=== PATIENT | female | born 1930 | race Caucasian/White ===

== ENCOUNTER 2017-02-26 07:01 | Day surgery (SDC) | payer OTHER, MEDICAID ==
[~2017-02-26] VITALS: Ht 142.2 cm; Wt 58.1 kg
[~2017-02-26 07:01] MED LIST: CEFAZOLIN SOD 1 GM in D5W 50 ML IV ONE
[2017-02-26] MEDS ORDERED: POLYMYXIN 500,000/BACIT.10,000 UNITS in NS IRR 1 L IR ONE (09:51)
[2017-02-26] MEDS ORDERED: LR 1,000 ML IV SCH (10:29)
[2017-02-26] MEDS ORDERED: MORPHINE 2 MG/ML INJ. SYRINGE IVP PRN ×3 (10:30)
[2017-02-26] MEDS ORDERED: METOCLOPRAMIDE HCL 10 MG/2 ML VIAL IVP PRN (10:30)
[2017-02-26] MEDS ORDERED: D5/0.45 NS 1,000 ML IV SCH (10:41)
[2017-02-26] MEDS ORDERED: HYDROcodone/ACETAMIN 5-325 MG TAB (NORCO/ VICODIN) PO PRN ×2 (10:45)
[2017-02-26] MEDS ORDERED: HYDROmorphone 1 MG INJ. 1 MG/ML AMPUL IVP PRN (10:45)
[2017-02-26] MEDS ORDERED: HYDROmorphone 1 MG INJ. 1 MG/ML AMPUL ONE (11:45)
[2017-02-26 12:13] VITALS: BP_SYST 143
== END 2017-02-26 14:10 | disposition home or self-care (01) ==
LOC: SDS 07:01 → SMU 07:02 → SDS 14:10
PROVIDERS: ATTEND Colon & Rectal Surgery
DX: K43.0 Incisional hernia with obstruction, without gangrene (principal)
CPT/HCPCS: 49561; 49568; C1781; J0690; J1170; J7060; J7120